=== PATIENT | male | born 1955 | race Caucasian/White ===

== ENCOUNTER 2017-01-28 10:46 | Day surgery (SDC) | payer BC ==
[2017-01-26 13:41] VITALS: BMI 24.4
[~2017-01-28 10:46] MED LIST: LACTATED RINGERS 1,000 ML IV SCH; LIDOCAINE 1% 20 ML VIAL (10MG/ML) FOR IV START INTRADERMA PRN
[2017-01-28 11:30] VITALS: RESP 16; TEMP 97
[2017-01-28] MEDS ORDERED: LIDOCAINE 1% 20 ML VIAL (10MG/ML) FOR IV START INTRADERMA ONE (11:31)
[2017-01-28] MEDS ORDERED: PROPOFOL 10 MG/ML 20 ML VIAL IV ONE (11:53)
--- NOTE | 2017-01-28 12:19 | P.PCN ---
Date of Procedure: 01/28/17 Procedure(s) Performed: BRIEF HISTORY: Patient is a 61-year-old pleasant white male, scheduled for an elective colonoscopy as a part of screening for colorectal neoplasia. PROCEDURE PERFORMED: Colonoscopy with snare polypectomy. PREOPERATIVE DIAGNOSIS: Screening for colon cancer. IV sedation per Anesthesia. PROCEDURE: After informed consent was obtained, the patient, was brought into the endoscopy unit. IV sedation was administered by Anesthesia under continuous monitoring. Digital rectal examination was normal. Initially the Olympus CF- 160 flexible video colonoscope was then inserted in the rectum, gradually advanced into the sigmoid colon and because of acute angulation in this area the scope could not be advanced further. A pediatric colonoscope was then introduced into the rectum and gradually advanced into the cecum without any difficulty. Careful examination was performed as the scope was gradually being withdrawn. Ileocecal valve and the appendiceal orifice were visualized and appeared normal. Prep was excellent. Mucosa of the cecum, ascending colon, transverse colon, descending colon, appeared normal. In the distal descending colon at 40 cm from the anal was there was a 1 cm polyp that was removed by snare polypectomy. Scattered sigmoid diverticulosis seen. Rest of the sigmoid colon, and rectum appeared normal. Retroflexion was performed in the rectum and no lesions were seen. The patient tolerated the procedure well. IMPRESSION: 1 cm pedunculated distal descending colon polyp status post snare polypectomy. Scattered sigmoid diverticulosis. RECOMMENDATIONS: Findings of this examination were discussed with the patient as well as his family. He was advised to follow with the biopsy results. If the biopsy shows a tubular adenoma he can have a repeat colonoscopy in 5 years.
[2017-01-28 12:56] VITALS: BP 143/89; PULSE 98
== END 2017-01-28 12:57 | disposition home or self-care (01) ==
LOC: ORWHC2ENDO 10:46
PROVIDERS: ATTEND Internal Medicine Gastroenterology
DX: Z12.11 Encounter for screening for malignant neoplasm of colon (principal); K63.5 Polyp of colon; K57.30 Diverticulosis of large intestine without perforation or abscess without bleeding; K21.9 Gastro-esophageal reflux disease without esophagitis; E78.5 Hyperlipidemia, unspecified; Z79.899 Other long term (current) drug therapy
CPT/HCPCS: 88305; 45385; J2704

== ENCOUNTER → 2017-07-07 | Day surgery (SDC) | payer BC ==
[2017-07-05 14:52] VITALS: BMI 25.0
[~2017-07-07] MED LIST changes: +GLYCOPYRROLATE 0.2 MG/ML 2 ML VIAL ONE; +LIDOCAINE 1% INJ 10MG/ML (20 ML MDV) ONE; +PROPOFOL 10 MG/ML 20 ML VIAL IV ONE
[2017-07-07 08:59] VITALS: RESP 16; TEMP 96.7
--- NOTE | 2017-07-07 09:31 | P.PCN ---
Date of Procedure: 07/07/17 Procedure(s) Performed: BRIEF HISTORY: Patient is a 61-year-old, pleasant, male, scheduled for an upper endoscopy as a part of evaluation of long-standing history of GERD 15 years duration. He is presently on Prilosec 20 mg daily and doing well. He scheduled for an upper endoscopy to rule out compensated reflux disease. PROCEDURE PERFORMED: Esophagogastroduodenoscopy with biopsy. PREOPERATIVE DIAGNOSIS: Long-standing history of GERD. IV sedation per anesthesia. PROCEDURE: After informed consent was obtained, the patient was brought into the endoscopy unit. IV sedation was administered by Anesthesia under continuous monitoring. Initially the Olympus GIF-140 video endoscope was inserted into the mouth. Esophagus intubated without any difficulty. It was gradually advanced into the stomach and duodenum and carefully examined. The bulb and the second part of the duodenum appeared normal. The scope at this time was withdrawn to the stomach, adequately insufflated with air, and upon careful examination, mucosa of the antrum had mild gastritis and biopsies were done from this area. There were multiple small gastric polyps noted in the proximal body of the stomach which were biopsied. The rest of the body, cardia and the fundus appeared normal. The scope was then withdrawn into the esophagus. Small sliding Hiatal hernia noted. The GE junction was located at 39 cm from the incisors. The esophagus appeared normal. There were no erosions or ulcerations seen and the patient tolerated the procedure well. IMPRESSION: 1. Mild antral gastritis. 2. Multiple small gastric polyps in the gastric body 3. Small hiatal hernia and no evidence of esophagitis or Coffey's esophagus. RECOMMENDATIONS: The findings of this examination were discussed with the patient as well as his family. He was advised to continue with Prilosec 20 mg daily and follow antireflux measures. He was advised to follow with the biopsy results..
[2017-07-07 09:57] VITALS: BP 147/76; PULSE 78
== END | disposition home or self-care (01) ==
LOC: ORWHC2ENDO 08:40
PROVIDERS: ATTEND Internal Medicine Gastroenterology
DX: K21.9 Gastro-esophageal reflux disease without esophagitis (principal); K31.7 Polyp of stomach and duodenum; K29.50 Unspecified chronic gastritis without bleeding; K44.9 Diaphragmatic hernia without obstruction or gangrene; I10 Essential (primary) hypertension; E78.5 Hyperlipidemia, unspecified; Z79.899 Other long term (current) drug therapy
CPT/HCPCS: 88305; 88342; 43239; J2001; J2704

== ENCOUNTER → 2018-07-14 | Outpatient (CLI) | payer BC ==
--- NOTE | 2018-07-14 12:30 | CT ---
EXAMINATION TYPE: CT brain w con DATE OF EXAM: 07/14/2018 COMPARISON: NONE HISTORY: Pt. Presents with scalp mass frontal region. Has had for several years, mass progressive in size. CT DLP: 1195 mGycm Automated Exposure Control for Dose Reduction was Utilized. TECHNIQUE: CT scan of the head is performed with IV contrast.,CT scan of the head is performed withou t and with with IV Contrast, patient injected with 100 mL of Isovue 300. FINDINGS: There is an approximately 3.2 x 0.9 x 3.7 cm fat attenuated right paracentral scalp mass at the skull vertex. This has a thin peripheral rim and minimal skin thickening overlying its most cran ial aspect. No internal complexity is seen other than a very thin single internal septation. No mural nodules. No erosion of the outer table of the calvarium. Overall calvarium is intact. There is leftward nasal septal deviation and a small leftward nasal septal spur. Nasal sinuses and ma stoid air cells are well aerated. The ventricles and sulci are within normal limits in size. Postcon trast images show no suspicious enhancing intraparenchymal mass. The globes are intact. Roberts-white ma tter interface is maintained. No midline shift. IMPRESSION: Right paracentral scalp mass near the skull vertex appears as a benign uncomplicated lipo matous lesion such as a simple lipoma. Given as described interval growth monitoring is recommended a nd if further interval growth, reassessment for increased in size on CT could be performed as other l ipomatous lesion is less likely.
== END ==
LOC: RADCTMAIN 11:13
PROVIDERS: ATTEND Otolaryngology
DX: R22.0 Localized swelling, mass and lump, head (principal)
CPT/HCPCS: 70460

== ENCOUNTER 2022-03-11 19:04 | Emergency (ER) | payer BC, MEDICARE ==
[2022-03-11 19:57] VITALS: BP 138/80; PULSE 114; RESP 16; TEMP 98.4
[2022-03-11 20:26] LABS: Basophils # (A) 0.1 k/uL (0-0.2); Basophils % (A) 1 %; Eosinophils # (A) 0.1 k/uL (0-0.7); Eosinophils % (A) 1 %; HCT 45.9 % (39.0-53.0); HGB 15.1 gm/dL (13.0-17.5); Lymphocytes # (A) 1.1 k/uL (1.0-4.8); Lymphocytes % (A) 17 %; MCH 29.5 pg (25.0-35.0); MCV 89.4 fL (80.0-100.0); Mean Platelet Volume 7.8; Monocytes # (A) 0.5 k/uL (0-1.0); Monocytes % (A) 7 %; Neutrophils # (A) 4.6 k/uL (1.3-7.7); Neutrophils % (A) 71 %; Platelet Count 213 k/uL (150-450); RBC 5.13 m/uL (4.30-5.90); RDW 12.9 % (11.5-15.5); WBC 6.4 k/uL (3.8-10.6)
[2022-03-11 20:35] LABS: ALT 17 U/L (4-49); AST 21 U/L (17-59); African American GFR (CKD) >90 (>60 ml/min/1.73 sqM); Albumin 4.5 g/dL (3.5-5.0); Alkaline Phosphatase 80 U/L (38-126); Anion Gap 7 mmol/L; Blood Urea Nitrogen 18 mg/dL (9-20); Calcium 9.3 mg/dL (8.4-10.2); Carbon Dioxide 27 mmol/L (22-30); Chloride 105 mmol/L (98-107); Glucose 110 mg/dL (74-99); Non-African American GFR(CKD) 89 (>60 ml/min/1.73 sqM); Potassium 4.1 mmol/L (3.5-5.1); Sodium 139 mmol/L (137-145); Total Bilirubin 0.7 mg/dL (0.2-1.3); Total Protein 7.2 g/dL (6.3-8.2)
--- NOTE | 2022-03-11 21:09 | XR ---
EXAMINATION TYPE: XR chest 2V DATE OF EXAM: 03/11/2022 8:23 PM COMPARISON: None TECHNIQUE: XR chest 2V Frontal and lateral views of the chest. CLINICAL INDICATION:Male, 66 years old with history of syncope; FINDINGS: Lungs/Pleura: There is no evidence of pleural effusion, focal consolidation, or pneumothorax. Pulmonary vascularity: Unremarkable. Heart/mediastinum: Cardiomediastinal silhouette is unremarkable. Musculoskeletal: No acute osseous pathology. IMPRESSION: No acute cardiopulmonary disease/process.
[2022-03-11 21:25] LABS: Appearance,Urine Cloudy (Clear); Bacteria,Urine Few /hpf; Bilirubin,Urine Negative (Negative); Blood,Urine Negative (Negative); Budding Yeast,Urine Occasional /hpf; Color,Urine Light Yellow; Glucose,Urine (UA) Negative (Negative); Ketones,Urine Negative (Negative); Leukocyte Esterase,Urine Moderate (Negative); Mucus,Urine Rare /hpf; Nitrite,Urine Negative (Negative); PH, Urine 5.5 (5.0-8.0); Protein,Urine Negative (Negative); Prothrombin Time 10.6 sec (9.0-12.0); RBC,Urine 2 /hpf (0-5); Specific Gravity,Urine 1.012 (1.001-1.035); Squamous Epithelial Cell,Urine 14 /hpf (0-4); Urobilinogen,Urine <2.0 mg/dL (<2.0); WBC,Urine 6 /hpf (0-5)
--- NOTE | 2022-03-11 22:09 | ED ---
General Adult HPI - General Chief complaint: Syncope Stated complaint: Syncope/couldnt speak Time Seen by Provider: 03/11/22 21:45 Source: patient Mode of arrival: ambulatory Limitations: no limitations - History of Present Illness Initial comments: This patient is a 66-year-old man who presents to be evaluated for a syncopal episode. The patient states that he had been having dinner with his when he felt like he was getting a little dizzy. The patient's states that he put his head back and then it looked like he was attempting to say something and he became unconscious probably lasting close to half a minute. The patient then awoke and was alert. He was asking what had happened. He did not have any fall or injury. There was no loss of continence. There was no tonic-clonic activity. The patient states she did not have any other prodromal type symptoms than the brief dizziness. There was no chest pain. No dyspnea. No palp itations. Patient did notice that his heart was beating a little faster after the episode. Onset/Timin -: hour(s) Severity scale (1-10): 0 Consistency: constant Improves with: none Worsens with: none Associated Symptoms: syncope Treatments Prior to Arrival: none - Related Data Home Medications Medication Instructions Recorded Confirmed Multivitamins, Thera [Multivitamin 1 tab PO DAILY 01/26/17 03/11/22 (formulary)] Atorvastatin [Lipitor] 40 mg PO DAILY 01/27/17 03/11/22 Omeprazole 20 mg PO AC-BRKFST 01/27/17 03/11/22 Ibuprofen [Motrin] 800 mg PO TID-W/MEALS PRN 03/11/22 03/11/22 Tamsulosin [Flomax] 0.4 mg PO DAILY 03/11/22 03/11/22 traZODone HCL [Desyrel] 50 mg PO HS 03/11/22 03/11/22 Allergies Allergy/AdvReac Type Severity Reaction Status Date / Time No Known Allergies Allergy Verified 03/11/22 23:08 Review of Systems ROS Statement: Those systems with pertinent positive or pertinent negative responses have been documented in the HPI. ROS Other: All systems not noted in ROS Statement are negative. Constitutional: Denies: fever, chills, weakness Eyes: Denies: vision change Respiratory: Denies: cough, dyspnea Cardiovascular: Reports: syncope. Denies: chest pain, palpitations, orthopnea, edema Gastrointestinal: Denies: abdominal pain, nausea, vomiting, diarrhea Genitourinary: Denies: dysuria, hematuria Musculoskeletal: Denies: back pain Skin: Denies: rash Neurological: Denies: headache, weakness, numbness Past Medical History Past Medical History: GERD/Reflux, Hyperlipidemia, Osteoarthritis (OA) Additional Past Medical History / Comment(s): OA KNEES. History of Any Multi-Drug Resistant Organisms: None Reported Past Surgical History: Orthopedic Surgery Additional Past Surgical History / Comment(s): [place] knee arthroscopy. COLONOSCOPY Past Anesthesia/Blood Transfusion Reactions: No Reported Reaction Past Psychological History: No Psychological Hx Reported Smoking Status: Never smoker Past Alcohol Use History: Daily Past Drug Use History: None Reported - Past Family History Mother Family Medical History: No Reported History General Exam Limitations: no limitations General appearance: alert, in no apparent distress Head exam: Present: atraumatic, normocephalic Eye exam: Present: normal appearance. Absent: scleral icterus, conjunctival injection Neck exam: Present: normal inspection Respiratory exam: Present: normal lung sounds bilaterally. Absent: respiratory distress, wheezes, rales, rhonchi, stridor Cardiovascular Exam: Present: regular rate, normal rhythm, normal heart sounds. Absent: systolic murmur, diastolic murmur, rubs, gallop GI/Abdominal exam: Present: soft. Absent: distended, tenderness, guarding, rebound, rigid, mass, pulsatile mass Extremities exam: Present: normal inspection, normal capillary refill. Absent: pedal edema, calf tenderness Back exam: Present: normal inspection Neurological exam: Present: alert, oriented X3. Absent: motor sensory deficit Skin exam: Present: warm, dry, intact, normal color. Absent: rash Course Vital Signs 03/11/22 19:55 Temperature 98.4 F Pulse Rate 114 H Respiratory 16 Rate Blood Pressure 138/80 O2 Sat by Pulse 98 Oximetry EKG Findings - EKG Results: EKG: interpreted by JOSE, sinus rhythm, normal axis, normal QRS EKG shows: tachycardia (Rate 108 bpm) - Blocks, [place], Hypertrophy, ST Abn: Repolarization changes or abnormalities: nonspecific abnormality, ST segment, and/or T wave Medical Decision Making - Lab Data Result diagrams: 03/11/22 Unknown 03/11/22 Unknown Lab Results 03/11/22 03/11/22 03/11/22 Range/Units Unknown Unknown Unknown WBC 6.4 (3.8-10.6) k/uL RBC 5.13 (4.30-5.90) m/uL Hgb 15.1 (13.0-17.5) gm/dL Hct 45.9 (39.0-53.0) % MCV 89.4 (80.0-100.0) fL MCH 29.5 (25.0-35.0) pg MCHC 33.0 (31.0-37.0) g/dL RDW 12.9 (11.5-15.5) % Plt Count 213 (150-450) k/uL MPV 7.8 Neutrophils % 71 % Lymphocytes % 17 % Monocytes % 7 % Eosinophils % 1 % Basophils % 1 % Neutrophils # 4.6 (1.3-7.7) k/uL Lymphocytes # 1.1 (1.0-4.8) k/uL Monocytes # 0.5 (0-1.0) k/uL Eosinophils # 0.1 (0-0.7) k/uL Basophils # 0.1 (0-0.2) k/uL PT 10.6 (9.0-12.0) sec INR 1.0 (<1.2) APTT 24.0 (22.0-30.0) sec Sodium (137-145) mmol/L Potassium (3.5-5.1) mmol/L Chloride (98-107) mmol/L Carbon Dioxide (22-30) mmol/L Anion Gap mmol/L BUN (9-20) mg/dL Creatinine (0.66-1.25) mg/dL Est GFR (CKD-EPI)AfAm (>60 ml/min/1.73 sqM) Est GFR (CKD-EPI)NonAf (>60 ml/min/1.73 sqM) Glucose (74-99) mg/dL Calcium (8.4-10.2) mg/dL Total Bilirubin (0.2-1.3) mg/dL AST (17-59) U/L ALT (4-49) U/L Alkaline Phosphatase (38-126) U/L Troponin I (0.000-0.034) ng/mL Total Protein (6.3-8.2) g/dL Albumin (3.5-5.0) g/dL Urine Color Light Yellow Urine Appearance Cloudy (Clear) Urine pH 5.5 (5.0-8.0) Ur Specific [place] 1.012 (1.001-1.035) Urine Protein Negative (Negative) Urine Glucose (UA) Negative (Negative) Urine Ketones Negative (Negative) Urine Blood Negative (Negative) Urine Nitrite Negative (Negative) Urine Bilirubin Negative (Negative) Urine Urobilinogen <2.0 (<2.0) mg/dL Ur Leukocyte Esterase Moderate H (Negative) Urine RBC 2 (0-5) /hpf Urine WBC 6 H (0-5) /hpf Ur Squamous Epith Cells 14 H (0-4) /hpf Urine Bacteria Few H (None) /hpf Urine Mucus Rare H (None) /hpf Urine Yeast (Budding) Occasional H (None) /hpf 03/11/22 03/11/22 Range/Units Unknown Unknown WBC (3.8-10.6) k/uL RBC (4.30-5.90) m/uL Hgb (13.0-17.5) gm/dL Hct (39.0-53.0) % MCV (80.0-100.0) fL MCH (25.0-35.0) pg MCHC (31.0-37.0) g/dL RDW (11.5-15.5) % Plt Count (150-450) k/uL MPV Neutrophils % % Lymphocytes % % Monocytes % % Eosinophils % % Basophils % % Neutrophils # (1.3-7.7) k/uL Lymphocytes # (1.0-4.8) k/uL Monocytes # (0-1.0) k/uL Eosinophils # (0-0.7) k/uL Basophils # (0-0.2) k/uL PT (9.0-12.0) sec INR (<1.2) APTT (22.0-30.0) sec Sodium 139 (137-145) mmol/L Potassium 4.1 (3.5-5.1) mmol/L Chloride 105 (98-107) mmol/L Carbon Dioxide 27 (22-30) mmol/L Anion Gap 7 mmol/L BUN 18 (9-20) mg/dL Creatinine 0.88 (0.66-1.25) mg/dL Est GFR (CKD-EPI)AfAm >90 (>60 ml/min/1.73 sqM) Est GFR (CKD-EPI)NonAf 89 (>60 ml/min/1.73 sqM) Glucose 110 H (74-99) mg/dL Calcium 9.3 (8.4-10.2) mg/dL Total Bilirubin 0.7 (0.2-1.3) mg/dL AST 21 (17-59) U/L ALT 17 (4-49) U/L Alkaline Phosphatase 80 (38-126) U/L Troponin I <0.012 (0.000-0.034) ng/mL Total Protein 7.2 (6.3-8.2) g/dL Albumin 4.5 (3.5-5.0) g/dL Urine Color Urine Appearance (Clear) Urine pH (5.0-8.0) Ur Specific [place] (1.001-1.035) Urine Protein (Negative) Urine Glucose (UA) (Negative) Urine Ketones (Negative) Urine Blood (Negative) Urine Nitrite (Negative) Urine Bilirubin (Negative) Urine Urobilinogen (<2.0) mg/dL Ur Leukocyte Esterase (Negative) Urine RBC (0-5) /hpf Urine WBC (0-5) /hpf Ur Squamous Epith Cells (0-4) /hpf Urine Bacteria (None) /hpf Urine Mucus (None) /hpf Urine Yeast (Budding) (None) /hpf Disposition Clinical Impression: Syncope Disposition: HOME SELF-CARE Condition: Good Instructions (If sedation given, give patient instructions): Syncope (ED) Is patient prescribed a controlled substance at d/c from ED?: No Referrals: Irma Conrad MD [Primary Care Provider] - 1-2 days Time of Disposition: 23:40
== END 2022-03-12 00:14 | disposition home or self-care (01) ==
LOC: EC 19:04
DX: R55 Syncope and collapse (principal); K21.9 Gastro-esophageal reflux disease without esophagitis; E78.5 Hyperlipidemia, unspecified; Z79.83 Long term (current) use of bisphosphonates
CPT/HCPCS: 36415; 71046; 80053; 81001; 84484; 85025; 85610; 85730; 93005

== ENCOUNTER → 2022-03-19 | Outpatient (CLI) | payer MEDICARE, BC ==
--- NOTE | 2022-03-19 11:04 | CT ---
EXAMINATION TYPE: CT brain wo/w con DATE OF EXAM: 03/19/2022 COMPARISON: CT dated 07/14/2018 HISTORY: syncope CT DLP: 2035.8 mGycm Automated exposure control for dose reduction was used. TECHNIQUE: CT scan of the brain is performed without and with IV contrast administration. FINDINGS: No acute intracranial hemorrhage. No gross acute cortical infarct. No midline shift, herniation or ve ntriculomegaly. Unremarkable sebastian-white matter differentiation, basal cisterns, sella and CP angles. No gross space-o ccupying lesion, vasogenic edema or mass effect. No area of abnormal enhancement, meningeal thickening or hyperenhancement. Patent major intracranial vessels. Unremarkable orbits. Clear visualized paranasal sinuses and mastoid air cells. No aggressive bone les ion. IMPRESSION: No acute intracranial abnormality, gross space-occupying lesion or intracranial abnormal enhancement. Interval resection of the previously seen anterior scalp lipomatous lesion.
== END | disposition home or self-care (01) ==
LOC: RADCTMAIN 07:36
PROVIDERS: ATTEND Family Medicine
DX: G93.89 Other specified disorders of brain (principal)
CPT/HCPCS: 70470; Q9967

== ENCOUNTER → 2022-03-26 | Outpatient (CLI) | payer MEDICARE, BC ==
[2022-03-26 18:26] LABS: African American GFR (CKD) >90 (>60 ml/min/1.73 sqM); Blood Urea Nitrogen 24 mg/dL (9-20); Non-African American GFR(CKD) 83 (>60 ml/min/1.73 sqM)
--- NOTE | 2022-03-27 21:57 | CT ---
EXAMINATION TYPE: CT angio neck DATE OF EXAM: 03/26/2022 HISTORY: syncope episode COMPARISON: None available CT DLP: 409.3 mGycm. Automated Exposure Control for Dose Reduction was Utilized. TECHNIQUE: CTA scan of the neck is performed with IV Contrast, patient injected with 65 mL of Isovue 370, axial images are obtained, coronal and sagittal reformatted images are reviewed. 3D reconstruct ed images are created on an independent workstation and reviewed. FINDINGS: Carotid/Vascular Structures: Scattered minimal arterial atherosclerotic calcifications. Hypoplastic P 1 segment of the right MASON APPRENTICE with dominant right posterior communicating artery. Otherwise normal calib er and enhancement of the neck arteries without significant stenosis, occlusion, dissection, aneurysm or AV malformation. Other: Prominent lingual tonsils, please correlate clinically. Further ENT consultation can be consid ered. Branching density seen in the right lower lobe lobe superior segment, possibly representing bro nchial impaction however other lesion cannot be excluded. Recommend further elective CT assessment to rule out underlying neoplastic lesion. Degenerative changes at C6-7 level. IMPRESSION: No significant arterial stenosis, occlusion, dissection or aneurysm seen in the major neck arteries. Incompletely characterized lesion in the right lower lung lobe superior segment as described above, f or further elective CT assessment. Other findings as described above. A [place] level critical message alert has been initiated for Irma Conrad MD via the [facility] Critical Results System on 03/27/2022 9:55 PM. This message alert has been sent to rIma Conrad MD via the preferences provided by the clinician for the receipt of Radiology Critical Findings. Koemei e ID [id number].
== END | disposition home or self-care (01) ==
LOC: RADCTMAIN 17:46
PROVIDERS: ATTEND Family Medicine
DX: R91.8 Other nonspecific abnormal finding of lung field (principal); I25.10 Atherosclerotic heart disease of native coronary artery without angina pectoris
CPT/HCPCS: 82565; 84520; 70498; 36415; Q9967

== ENCOUNTER → 2022-04-16 | Outpatient (CLI) | payer MEDICARE ==
[2022-04-16 15:26] LABS: African American GFR (CKD) >90 (>60 ml/min/1.73 sqM); Blood Urea Nitrogen 21 mg/dL (9-20); Non-African American GFR(CKD) 86 (>60 ml/min/1.73 sqM)
--- NOTE | 2022-04-16 16:22 | CT ---
EXAMINATION TYPE: CT chest w con CT DLP: 382.40 mGycm, Automated exposure control for dose reduction was used. DATE OF EXAM: 04/16/2022 4:02 PM COMPARISON: Neck 03/27/2022. CLINICAL INDICATION:Male, 66 years old with history of R91.8 Abn findings Lung field, abnormal lung f indings on prior CT TECHNIQUE: Multiple axial images were obtained through the chest. Contrast used:100 mL of Isovue 300 with IV Contrast, Oral contrast used: none. FINDINGS: LUNGS/ PLEURA: Right lower lobe nodules are present measuring up to 10.4 mm, adjacent nodule in the l ower lobe also measuring 7.5 mm. Both of these appear to have increased density suggestive of calcifi cation Within the more inferior right lower lobe are additional nodule-like area is measuring up to 9 mm. Partially calcified nodules are seen within the left lower lobe superior segment AIRWAY: Patent and unremarkable. HEART: The heart is mildly enlarged for size. Mild atherosclerosis changes. MEDIASTINUM: No gross evidence of adenopathy. Scattered partially calcified lymph nodes are seen with in the mediastinum prevascular space, AP window VASCULATURE: No aortic aneurysm. MUSCULOSKELETAL: No acute osseous abnormalities SOFT TISSUES/LYMPH NODES: Unremarkable. LOWER NECK: No significant findings. UPPER ABDOMEN: Low-attenuation to the liver parenchyma. Partially visualized right nonobstructing santi culus measuring 3 mm. IMPRESSION: Multiple pulmonary nodules which are most pronounced in the right lower lobe some which have calcific ation. Other scattered calcifications most pronounced in the left lower lobe superior segment and par tially calcified lymph nodes these are favored to represent a granulomatous process. Follow-up with C T chest in 6-12 months is recommended to ensure stability. Comparison with priors at outside institut ions would be of benefit.
== END | disposition home or self-care (01) ==
LOC: RADCTMAIN 14:35
PROVIDERS: ATTEND Family Medicine
DX: R91.8 Other nonspecific abnormal finding of lung field (principal)
CPT/HCPCS: 82565; 84520; 71260; 36415; Q9967

== ENCOUNTER → 2022-04-24 | Outpatient (CLI) | payer MEDICARE, BC ==
--- NOTE | 2022-04-24 12:46 | XR ---
Left shoulder HISTORY: Pain 3 views of the left shoulder Bone mineralization, alignment are maintained. Arthropathy is present at the acromioclavicular joint. Left lung apex as visualized is normal. Distal acromion is downturned. IMPRESSION: Acromial clavicular joint arthropathy. Consider impingement. Shoulder MRI may be of benef it.
--- NOTE | 2022-04-24 12:50 | XR ---
Thoracic spine HISTORY: Pain Frontal and lateral views of the thoracic spine are submitted on 4 images There is multilevel spondylosis, anterior flowing osteophytes with relative preservation of disc spac es are noted. Generative disc changes are present in the cervical spine. Thoracic vertebral bodies sh ow preserved height. Bone mineralization is reduced. No evident paraspinal mass. IMPRESSION: Degenerative disc disease and findings suggestive of possible diffuse idiopathic skeletal hyperostosis.
== END | disposition home or self-care (01) ==
LOC: RADXRMAIN 09:43
PROVIDERS: ATTEND Nurse Practitioner Family
DX: M54.05 Panniculitis affecting regions of neck and back, thoracolumbar region (principal); M19.012 Primary osteoarthritis, left shoulder; M51.34 Other intervertebral disc degeneration, thoracic region
CPT/HCPCS: 72072

== ENCOUNTER → 2023-03-06 | Outpatient (CLI) | payer MEDICARE, BC ==
[2023-03-07 08:10] LABS: Basophils # (A) 0.04 X 10*3/uL (0.00-0.10); Eosinophils # (A) 0.09 X 10*3/uL (0.04-0.35); Eosinophils % (A) 2.3 %; HCT 45.6 % (39.6-50.0); Lymphocytes % (A) 23.4 %; MCH 30.5 pg (27.0-32.0); MCHC 32.9 d/dL (32.0-37.0); MCV 92.7 FL (80.0-97.0); Mean Platelet Volume 10.5 FL (9.5-12.2); Monocytes # (A) 0.42 X 10*3/uL (0.20-1.00); Monocytes % (A) 10.9 %; NRBC Per 100 WBC 0 X 10*3/uL (0.00-0.01); Neutrophils # (A) 2.39 X 10*3/uL (1.80-7.70); Neutrophils % (A) 62.1 %; Platelet Count 226 X 10*3/uL (140-440); RBC 4.92 X 10*6/uL (4.40-5.60); RDW 12.5 % (11.5-14.5); WBC 3.85 X 10*3/uL (4.50-10.00)
[2023-03-07 08:44] LABS: ALT 16 U/L (10-49); AST 18 U/L (14-35); Albumin 4.5 d/dL (3.8-4.9); Albumin/Globulin Ratio 1.96 Ratio (1.60-3.17); Alkaline Phosphatase 77 U/L (41-126); BUN/Creat Ratio 16.33 Ratio (12.00-20.00); Blood Urea Nitrogen 14.7 mg/dL (9.0-27.0); Calcium 9.7 mg/dL (8.7-10.3); Carbon Dioxide 28.9 mmol/L (21.6-31.8); Chloride 105 mmol/L (96-109); Chol/HDL Ratio 2.45 Ratio; Globulin 2.3 d/dL (1.6-3.3); Glucose 99 mg/dL (70-110); LDL Cholesterol,Calculated 72.9 mg/dL (0.0-131.0); Potassium 4.9 mmol/L (3.5-5.5); Sodium 143 mmol/L (135-145); Total Bilirubin 0.9 mg/dL (0.3-1.2); Total Protein 6.8 d/dL (6.2-8.2); VLDL Calculation 9.88 mg/dL (5.00-40.00)
== END | disposition home or self-care (01) ==
LOC: LABWHC1 10:18
PROVIDERS: ATTEND Family Medicine
DX: Z00.00 Encounter for general adult medical examination without abnormal findings (principal); E78.5 Hyperlipidemia, unspecified; M79.10 Myalgia, unspecified site; E53.8 Deficiency of other specified B group vitamins
CPT/HCPCS: 36415; 80053; 80061; 82607; 84443; 85025

== ENCOUNTER → 2025-04-12 | Outpatient (CLI) | payer MEDICARE ==
[2025-04-12 15:15] LABS: HCT 41.6 % (39.6-50.0); HGB 14.2 g/dL (13.0-17.0); MCH 30.3 pg (27.0-32.0); MCHC 34.1 g/dL (32.0-37.0); MCV 88.9 FL (80.0-97.0); NRBC Per 100 WBC 0 X 10*3/uL (0.00-0.01); Platelet Count 189 X 10*3/uL (140-440); RBC 4.68 X 10*6/uL (4.40-5.60); RDW 12.4 % (11.5-14.5); WBC 5.83 X 10*3/uL (4.50-10.00)
[2025-04-12 15:21] LABS: Anion Gap 6.50 mmol/L (4.00-12.00); Blood Urea Nitrogen 20.3 mg/dL (9.0-27.0); Carbon Dioxide 27.5 mmol/L (21.6-31.8); Chloride 102 mmol/L (96-109); Potassium 4.4 mmol/L (3.5-5.5); Sodium 136 mmol/L (135-145)
== END | disposition home or self-care (01) ==
LOC: LABPAT 09:50
PROVIDERS: ATTEND Internal Medicine Interventional Cardiology
DX: Z01.812 Encounter for preprocedural laboratory examination (principal); R94.31 Abnormal electrocardiogram [ECG] [EKG]
CPT/HCPCS: 36415; 80051; 82565; 84520; 85027

== ENCOUNTER 2025-04-17 06:10 | Day surgery (SDC) | payer BC, MEDICARE ==
[2025-04-13 11:26] VITALS: BMI 23.7
[2025-04-17] MEDS ORDERED: ALPRAZolam 0.25 MG TAB PO PRN (06:26)
[2025-04-17] MEDS ORDERED: NITROGLYCERIN SL TABS 0.4 MG TAB SUBLINGUAL PRN (06:26)
[2025-04-17] MEDS ORDERED: ALPRAZolam 0.5 MG TAB PO PRN (06:26)
[2025-04-17] MEDS: IV FLUID CONTINUATION 1,000 ML IV ONE (06:53)
[2025-04-17] MEDS: SODIUM CHLORIDE 0.9% 1,000 ML in EMPTY BAG 1 BAG IV SCH (06:53)
[2025-04-17] MEDS: ASPIRIN 325 MG TAB PO STA (06:59)
[2025-04-17] MEDS: MIDAZOLAM 2 MG/2 ML VIAL IVP ONE ×2 (07:51→08:21)
[2025-04-17] MEDS: fentaNYL (PF) 50 MCG/1 ML VIAL IVP ONE (07:51)
[2025-04-17] MEDS: HEPARIN SODIUM,PORCINE 10,000 UNIT in SODIUM CHLORIDE 0.9% 1,000 ML IRRIGATION PRN (07:51)
[2025-04-17] MEDS: HEPARIN SODIUM,PORCINE (1 ML) 2,500 UNIT in SODIUM CHLORIDE 0.9% 250 ML IRRIGATION PRN (07:52)
[2025-04-17] MEDS: LIDOCAINE 1% INJ 10MG/ML (20 ML MDV) SQ ONE (08:11)
[2025-04-17] MEDS: VERAPAMIL SYRINGE (5 MG/10 ML) INTRAARTER ONE (08:12)
[2025-04-17] MEDS: HEPARIN SODIUM 1,000 UN/ML (10ML VL) IVP ONE ×3 (08:15→08:57)
[2025-04-17] MEDS: PRASUGREL 10 MG TAB PO ONE (08:37)
[2025-04-17] MEDS: IOPAMIDOL-370 100ML BTL INJ ONE (08:47)
--- NOTE | 2025-04-17 09:01 | P.PCN ---
Date of Procedure: 04/17/25 Operative Findings: CARDIAC CATHETERIZATION AND PERCUTANEOUS CORONARY INTERVENTION PERFORMING PHYSICIAN: Andrea Riggs MD, [facility] PROCEDURE PERFORMED: 1. Selective right and left coronary angiogram and left heart catheterization 2. Successful stenting of PDA of RCA using 3.25 x 18 mm Xience TY with an e xcellent angiographic results 3. Adjunctive use of IVUS an elevated d IFR 4. Ultrasound-guided access of the right radial artery INDICATION: Myopathy COMPLICATION: None APPROACH: Right radial artery LEVEL OF SEDATION: Moderate with the sedation time off 38 minutes PROCEDURE DESCRIPTION: After obtaining informed consent the patient was brought to the cardiac Industrial Chemist. The right radial artery was cannulated using micropuncture technique under ultrasound guidance a micropuncture wire passed easily then I placed a 6 [place] 11 cm sheath at the right radial artery and give the patient 2 mg of verapamil intra-arterial and 5000's of heparin intravenous with continuous ACT monitoring. Selective right and left coronary angiogram performed using JR4 and JL 3.5 catheters and also left heart catheterization was performed using the JR4 catheter. After that I decided to do an IFR of the RCA and PDA of RCA. After zeroing the Dobler wire and equalized in between the Dobler wire and guiding catheter the left RCA was engaged using an AL 0.75 guide and I did wired to PDA branch of the RCA with IFR came in at 0.89. Pullback to the RCA showed negative IFR. I decided to intervene on the PDA. IVUS was performed and showed a diameter around 3 mm with predilatation was performed using 3 mm balloon before I deployed a 3.25 x 18 mm stent which was postdilated using 3 mm NC balloon with final angiogram showing excellent angiographic results and the procedure was completed with no complication SELECTIVE CORONARY ANGIOGRAM: The right coronary artery: Large caliber vessel and a dominant vessel with intermediate disease involving the midportion documented to be nonflow-limiting by Doppler wire and severe disease involving the PDA which was stented Left main: Is angiographically normal The left circumflex: Large caliber vessel nondominant vessel with no evidence of high-grade stenosis The left anterior descending artery: Large caliber vessel also with no evidence of high-grade stenosis HEMODYNAMICS: The LVEDP was about 22 mmHg with no significant gradient across aortic valve CONCLUSION: 1. Intermediate disease involving the mid RCA with negative IFR and severe disease involving the PDA of RCA which was stented as described above 2. Mild disease involving the left coronary system 3. Elevated left-sided filling pressure POSTPROCEDURE MANAGEMENT: 1. Dual antiplatelet therapy using aspirin and Effient for 6 month 2. Aggressive cholesterol control 3. Follow-up with the patient
[2025-04-17] MEDS: SODIUM CHLORIDE 0.9% 1,000 ML IV SCH (22:28)
[2025-04-18 05:55] VITALS: TEMP 97.8
[2025-04-18 08:02] VITALS: BP 137/80; PULSE 77; RESP 14
[2025-04-18] MEDS: ASPIRIN 81 MG PO SCH (08:43)
[2025-04-18] MEDS: PRASUGREL 10 MG TAB PO SCH (08:43)
[2025-04-18] MEDS: METOPROLOL SUCCINATE (ER) 25 MG TAB.ER.24H PO SCH (08:43)
[2025-04-18] MEDS: PANTOPRAZOLE 40 MG TABLET PO SCH (08:43)
[2025-04-18] MEDS: TAMSULOSIN 0.4 MG CAP.ER.24H PO SCH (08:43)
[2025-04-18] MEDS: ATORVASTATIN 40 MG TAB PO SCH (08:43)
--- NOTE | 2025-04-18 09:19 | P.DS ---
Providers Attending physician: Andrea Riggs Primary care physician: [facility] Course: The patient is a pleasant 69-year-old gentleman who underwent yesterday successful PCI of the PDA of RCA The patient was seen and evaluated this morning. He is asymptomatic and hemodynamically stable. The patient is going to be discharged home on dual antiplatelet therapy and follow-up in the office next week Plan - Discharge Summary Discharge Rx Participant: Yes New Discharge Prescriptions: New Prasugrel [Effient] 10 mg PO DAILY #90 tab Continue Multivitamins, Thera [Multivitamin (formulary)] 1 tab PO DAILY Omeprazole 20 mg PO DAILY Atorvastatin [Lipitor] 40 mg PO DAILY Metoprolol Succinate [Metoprolol Succinate ER] 25 mg PO DAILY Ibuprofen [Motrin] 800 mg PO TID Tamsulosin [Flomax] 0.4 mg PO DAILY Aspirin [Adult Low Dose Aspirin EC] 81 mg PO DAILY Prasugrel [Effient] 10 mg PO DAILY Discharge Medication List Multivitamins, Thera [Multivitamin (formulary)] 1 tab PO DAILY 01/26/17 [History] Atorvastatin [Lipitor] 40 mg PO DAILY 01/27/17 [History] Omeprazole 20 mg PO DAILY 01/27/17 [History] Ibuprofen [Motrin] 800 mg PO TID 03/11/22 [History] Tamsulosin [Flomax] 0.4 mg PO DAILY 03/11/22 [History] Metoprolol Succinate [Metoprolol Succinate ER] 25 mg PO DAILY 04/13/25 [History] Aspirin [Adult Low Dose Aspirin EC] 81 mg PO DAILY 04/17/25 [History] Prasugrel [Effient] 10 mg PO DAILY 04/17/25 [History] Prasugrel [Effient] 10 mg PO DAILY #90 tab 04/18/25 [Rx] Follow up Appointment(s)/Referral(s): Andrea Riggs MD [STAFF PHYSICIAN] - 1 Week
== END 2025-04-18 12:06 ==
LOC: CATHCVL 06:10 → 1SOBS 08:47 → CATHCVL 04-18 12:06
PROVIDERS: ATTEND Internal Medicine Interventional Cardiology
DX: I48.0 Paroxysmal atrial fibrillation (principal); I42.9 Cardiomyopathy, unspecified; E78.5 Hyperlipidemia, unspecified; F10.90 Alcohol use, unspecified, uncomplicated; Z86.73 Personal history of transient ischemic attack (TIA), and cerebral infarction without residual deficits; Z95.5 Presence of coronary angioplasty implant and graft; Z79.82 Long term (current) use of aspirin; Z79.02 Long term (current) use of antithrombotics/antiplatelets; Z79.899 Other long term (current) drug therapy
CPT/HCPCS: 92978; 93458; 93799; 99152; 99153; C9600; C1887; C1769 ×2; C1894; C1725 ×2; C1753; C1874; J2250; J1644 ×3; J2003; Q9967; J3010